=== PATIENT | female | born 1945 | race Caucasian/White ===

== ENCOUNTER 2017-10-27 02:39 | Observation (INO) | payer MEDICARE ==
[2017-10-27] VITALS (14 sets, daily range): BP systolic 131–173; BP diastolic 59–93
[~2017-10-27] VITALS: Ht 152.4 cm; Wt 57.2 kg
[~2017-10-27 02:39] MED LIST: ACET-1966 PO; CHOL10005 PO; HYDR-2966 PO; LEVO50TA86 PO; LOSA50TA72 PO; MELO-205 PO; MULT-1097 PO
[2017-10-27] MEDS ORDERED: CELECOXIB 200 MG CAP PO ONE (08:55)
[2017-10-27] MEDS ORDERED: CLINDAMYCIN(*) 600 MG/4 ML ADD 600 MG in DEXTROSE 5% 50 ML BAG 50 ML IVPB ONE (08:55)
[2017-10-27] MEDS ORDERED: LIDOCAINE/SOD BICARB 8.4% SYR ID ONE (08:55)
[2017-10-27] MEDS ORDERED: FAMOTIDINE 20 MG TAB PO ONE (08:55)
[2017-10-27] MEDS ORDERED: MIDAZOLAM 2 MG/2 ML VIAL IVP PRN (08:55)
[2017-10-27] MEDS ORDERED: NORMOSOL R SOLN(*) 1000 ML BAG 1,000 ML IV PRN (08:55)
[2017-10-27] MEDS ORDERED: LIDOCAINE MPF 1% 5 ML VIAL ONE (11:18)
[2017-10-27] MEDS ORDERED: fentaNYL CITR 100 MCG/2 ML AMP ONE ×4 (11:18→16:08)
[2017-10-27] MEDS ORDERED: ONDANSETRON 4 MG/2 ML VIAL ONE ×2 (11:18→16:47)
[2017-10-27] MEDS ORDERED: PROPOFOL EMUL(*) 10MG/ML 20 ML 20 ML ONE (11:18)
[2017-10-27] MEDS ORDERED: DEXAMETHASONE SOD 4 MG/ML VIAL ONE (11:18)
[2017-10-27] MEDS ORDERED: BACITRACIN/POLYMY B OINT 15 GM TP ONE (12:46)
[2017-10-27] MEDS ORDERED: ROPIVACAINE 0.2% 20 ML VIAL ONE (12:46)
[2017-10-27] MEDS ORDERED: KETOROLAC 30 MG/ML VIAL ONE (15:01)
[2017-10-27] MEDS ORDERED: HYDROmorphone HCL 2 MG/ML SDV ONE (15:46)
[2017-10-27] MEDS ORDERED: CLIN300C99 PO (16:10)
[2017-10-27] MEDS ORDERED: PER PO (16:10)
[2017-10-27] MEDS ORDERED: PROMETHAZINE 25 MG/ML 1 ML AMP ONE (17:11)
[2017-10-27] MEDS ORDERED: ALBUTEROL 2.5 MG/3 ML NEB ONE (17:22)
--- NOTE | 2017-10-27 19:31 | OPERATIVE REPORT 1 ---
EVENT DATE: October 27, 2017 SURGEON: Armando Worrell MD ANESTHESIOLOGIST: Alfred Beckwith MD ANESTHESIA: General. NIGHT CLEANER: AHMET Bird PREOPERATIVE DIAGNOSIS Right mid carpal arthritis with scaphoid, trapezium, and trapezoid arthritis and mild radioscaphoid arthritis. POSTOPERATIVE DIAGNOSIS Right mid carpal arthritis with scaphoid, trapezium, and trapezoid arthritis and mild radioscaphoid arthritis. PROCEDURES PERFORMED 1. Right wrist proximal row carpectomy. 2. Denervation of wrist to include excision of terminal branch of posterior interosseous nerve and posterior branch of anterior interosseous nerve. 3. Radial styloidectomy. 4. Leoncio-lunate arthroplasty at right wrist. ESTIMATED BLOOD LOSS Minimal. INTRAVENOUS FLUIDS 1500 TOURNIQUET TIME 63 minutes SPECIMENS No specimens. COMPLICATIONS No complications. IMPLANTS Arthrosurface 7.5 mm capitate post with 22 x 17 mm radius of curvature 12 mm capitate insert from the leoncio-lunate arthroplasty set. SUMMARY OF PROCEDURE The patient was brought into the operating room and placed on the OR table in the supine position. After obtaining adequate general anesthesia, the right upper extremity was prepped and draped in the usual sterile fashion. The limb was exsanguinated, and the tourniquet was inflated to 250 mmHg. A longitudinal incision was made over the dorsal aspect of the wrist, deepened throughout skin and subcutaneous tissue. The third dorsal compartment was opened, and the EPL was identified. The EPL did have some damage on it. It had a little bit of swelling and longitudinal striated tearing, but it did not require repair. It was retracted to the radial side, and then we mobilized the contents of the second dorsal compartment on the same Ruben drain. Contents of the fourth dorsal compartment were also placed on another Ruben drain and retracted in the ulnar direction after having split the extensor retinaculum all the way. We then addressed the capsule by incising it longitudinally. I elected not to make an anatomic approach because in this particular case we actually wanted to tighten up things with scarring since she would be rather loose. Once the bones were exposed, we identified the various carpal bones and confirmed that the capitate was fully eburnated, as was the distal lunate. There was also STT arthritis and some mild arthritic change at the radioscaphoid joint. All three of the proximal bones were removed. The lunate and triquetrum were removed in their entirety without morselizing them while the scaphoid was removed with a rongeur. We then measured the capitate as well as the lunate fossa. We drilled the longitudinal wire down the capitate and checked its position with the fluoroscope, after which it was drilled, and then the screw-down post was applied. With the taper post inserted, we then reamed the distal surface and the dorsal surface and then did a trial. The 22 x 17 fit well. We then removed this and cleaned everything out, washed it all extensively, after which the final implant was inserted. I did confirm that she impacted on the radial side, so a radial styloidectomy was undertaken, taking care to maintain the radioscaphocapitate ligament. We then directed our attention to the nerves. First, the posterior interosseous nerve was identified and segmentally resected. I then made a small window in the interosseous membrane and identified the posterior branch of the anterior interosseous nerve, and this, too, was resected segmentally with cautery. The wound was irrigated, and then the capsule was closed with FiberWire suture to include two transosseous drill holes at Wilder tubercle for better security. The tourniquet was deflated. Bipolar cautery was used for hemostasis, followed by closure of the retinaculum with 4-0 FiberWire, leaving the EPL radialized. She was given a dry, sterile dressing. Nylon was used to close the skin. She was injected with a local anesthetic and then given a volar splint. She was then awakened and transferred to the recovery area in stable condition. SHANITA
[2017-10-27] MEDS ORDERED: PROMETHAZINE HCL 25 MG TAB PO PRN (19:45)
[2017-10-27] MEDS ORDERED: NALOXONE HCL 0.4 MG/ML VIAL IVP PRN (19:45)
[2017-10-27] MEDS ORDERED: MORPHINE 1 MG/ML 30 ML PCA IV PRN (19:45)
[2017-10-28 05:23] VITALS: BP 125/66
[2017-10-28 07:15] VITALS: BP 135/72
[2017-10-28] MEDS ORDERED: LOSARTAN POTASSIUM 50 MG TAB PO SCH (09:00)
[2017-10-28] MEDS ORDERED: HYDROCHLOROTHIAZIDE 25 MG TAB PO SCH (09:00)
[2017-10-28 11:40] VITALS: Ht 152.4 cm; Wt 57.2 kg
== END 2017-10-28 08:32 | disposition home or self-care (01) ==
LOC: OR 02:39 → MED 18:15
PROVIDERS: ADMIT Orthopaedic Surgery Hand Surgery; ATTEND Orthopaedic Surgery Hand Surgery
DX: M13.841 Other specified arthritis, right hand (principal)
CPT/HCPCS: 25444; 94640; 94667; A4565; A9270; C1776; G0378; J1100; J1170; J1885; J2001; J2250; J2405; J2550; J2704; J2795; J3010; J3490; J7060; J7613